=== PATIENT | male | born 1950 | race Caucasian/White ===

== ENCOUNTER 2016-10-11 12:26 | Outpatient (RCR) | payer BC ==
[~2016-10-11] VITALS: Ht 172.7 cm; Wt 77.0 kg
[2016-10-11] VITALS (8 sets, daily range): BP systolic 100–112; BP diastolic 48–56; PULSE 62–70; TEMP 97.5–98.7
[~2016-10-11 12:26] MED LIST: FISH OIL500 MG PO; NORCO 325 MG-51 TAB PO; OCUVITE1 TA1 PO; ZOFRAN ODT4 MG PO
[2016-10-11 13:24] LABS: HEMATOCRIT 19.6 % (42.0-52.0)
[2016-10-11] MEDS ORDERED: ZOVIRAX800 MG PO (16:00)
[2016-10-11] MEDS ORDERED: LEVAQUIN 2250 MG/TAB PO (16:00)
[2016-10-11] MEDS ORDERED: PRINZIDE 25 MG-1 TAB PO (16:00)
[2016-10-11] MEDS ORDERED: BACTRIM DS 8001 TAB PO (16:02)
== END 2016-10-11 18:53 | disposition home or self-care (01) ==
LOC: EUO 12:26
PROVIDERS: Internal Medicine
DX: D64.89 Other specified anemias (principal); Z45.2 Encounter for adjustment and management of vascular access device
CPT/HCPCS: J1200; J1644; J7050; P9040

== ENCOUNTER 2016-10-26 07:34 | Outpatient (RCR) | payer BC ==
[~2016-10-26 07:34] MED LIST changes: +BACTRIM DS 8001 TAB PO; +LEVAQUIN 2250 MG/TAB PO; +PRINZIDE 25 MG-1 TAB PO; +ZOVIRAX800 MG PO
[2016-10-26 14:49] VITALS: BP 113/42; PULSE 76; TEMP 98.9
[2016-10-26 14:54] VITALS: BP 111/42; PULSE 77; TEMP 98.9
[2016-10-26 16:29] VITALS: BP 120/43; PULSE 72; TEMP 97.9
[2016-10-26 16:36] VITALS: BP 119/46; PULSE 69; TEMP 97.7
[2016-10-26 18:04] VITALS: BP 124/47; PULSE 71; TEMP 97.3
== END 2016-10-26 18:00 | disposition home or self-care (01) ==
LOC: EUO 07:34 → MEDICAL 07:34 → EUO 18:00
DX: C83.08 Small cell B-cell lymphoma, lymph nodes of multiple sites (principal)
CPT/HCPCS: OP; P9040

== ENCOUNTER → 2016-11-13 | Outpatient (CLI) | payer BC | LOC: COL.RAD 10:45 | DX: R22.41 Localized swelling, mass and lump, right lower limb (principal) ==

== ENCOUNTER 2022-08-06 13:43 | Day surgery (SDC) | payer MEDICARE ==
[~2022-08-06] VITALS: Ht 172.7 cm; Wt 85.6 kg
[2022-08-06 15:22] VITALS: BP 157/73; PULSE 87; TEMP 97.9
[2022-08-06] MEDS ORDERED: PROSCAR 5MG5 MG PO (15:42)
[2022-08-06] MEDS ORDERED: FLOMAX 0.40.4 MG/CAP PO (15:42)
[2022-08-06] MEDS ORDERED: ZESTRIL30 MG PO (15:43)
[2022-08-06] MEDS ORDERED: LIPITOR 40MG TA40 MG PO (15:43)
[2022-08-06 17:32] VITALS: BP 112/57; PULSE 63; TEMP 97.1
[2022-08-06 17:47] VITALS: BP 115/51; PULSE 60
[2022-08-06 18:02] VITALS: BP 151/59; PULSE 58
[2022-08-06 18:17] VITALS: BP 135/64; PULSE 60
--- NOTE | 2022-08-06 18:30 | NUR ---
1732 RETURNS TO ROOM 6 PER CART. AWAKE, ALERT. RESP CLEAR, UNLABORED. HOB ELEVATED 45 DEGREES. VITAL SIGNS OBTAINED. COBAN WRAPPED DRESSING LEFT INDEX FINGER CLEAN DRY AND INTACT. FINGER SPLINT IN PLACE. DENIES PAIN. 1745 TOLERATES PO JUICE WITHOUT NAUSEA. 1800 AWAKE, ALERT. DENIES PAIN. 1810 DISCHARGE INSTRUCTIONS REVIEWED. PATIENT VERBALIZES UNDERSTANDING. COPY PROVIDED IN DISCHARGE FOLDER. 182 SITS ON EDGE OF BED. DRESSES SELF
== END 2022-08-06 18:30 | disposition home or self-care (01) ==
LOC: SDCO 13:43
DX: M19.042 Primary osteoarthritis, left hand (principal); M19.041 Primary osteoarthritis, right hand; M1A.9XX1 Chronic gout, unspecified, with tophus (tophi); M25.742 Osteophyte, left hand; Z85.72 Personal history of non-Hodgkin lymphomas
CPT/HCPCS: C1713; C1769; J0690; J1100; J2405; J2704; J7120

== ENCOUNTER 2024-05-04 15:47 | Emergency (ER) | payer MEDICARE ==
[~2024-05-04] VITALS: Ht 172.7 cm; Wt 80.9 kg
[~2024-05-04 15:47] MED LIST changes: +FLOMAX 0.40.4 MG/CAP PO; +LIPITOR 40MG TA40 MG PO; +PROSCAR 5MG5 MG PO; +ZESTRIL30 MG PO
[2024-05-04 16:29] LABS: HEMOGLOBIN 10.5 g/dl (13.5-18.0); MEAN CELL VOLUME 96 fl (80.0-100.0); MEAN CORPUSCULAR HEMOGLOBIN 32 pg (27-31); MEAN CORPUSCULAR HGB CONC 33 g/dl (33.0-37.0); MEAN PLATELET VOLUME 10.8 fl (7.4-10.4); PLATELET COUNT 121 K/mm3 (130-400); REDCELL DISTRIBUTION WIDTH-CV 14.2 % (11.5-14.5)
[2024-05-04] MEDS ORDERED: NS 1,000 ML IV ONE ×2 (16:30→21:00)
[2024-05-04 16:32] LABS: HEMATOCRIT 31.6 % (42.0-52.0)
[2024-05-04 16:46] LABS: BILIRUBIN,TOTAL 0.7 mg/dL (0.2-1.2); CREATININE, serum 1.15 mg/dL (0.72-1.25); POTASSIUM 4.9 mEq/L (3.5-4.5)
[2024-05-04] MEDS ORDERED: Iohexol 300 - 100 ML VIAL IV ONE (17:10)
[2024-05-04] MEDS ORDERED: NS 100 ML IV SCH (17:10)
[2024-05-04 17:43] LABS: LYMPHOCYTE 66 % (20.0-51.0); NEUTROPHILS 29 % (42.0-75.2)
[2024-05-04 17:45] LABS: ANISOCYTOSIS 1+; OVALOCYTES 1+; PLATELET ESTIMATE DECREASED (NORMAL); SCHISTOCYTES 1+
[2024-05-04] MEDS ORDERED: Tranexamic Acid 1,000 MG in NS 100 ML IV ONE (18:15)
[2024-05-04] MEDS ORDERED: Tdap Vaccine 0.5 ML SYRINGE IM ONE (18:15)
[2024-05-04] MEDS ORDERED: ceFAZolin 2 G in Water For Injection,Sterile 20 ML IV ONE (18:30)
[2024-05-04 18:55] VITALS: BP 111/59; PULSE 102; TEMP 98.2
[2024-05-04 19:36] LABS: HEMATOCRIT 32.2 % (42.0-52.0)
[2024-05-04 20:55] VITALS: BP 111/59; PULSE 102; TEMP 98.2
[2024-05-04 21:25] VITALS: BP 100/53; PULSE 101; TEMP 97.7
[2024-05-04 21:42] VITALS: BP 105/54; PULSE 99
== END 2024-05-04 21:40 | disposition short-term general hospital (02) ==
LOC: COL.ER 15:47
PROVIDERS: Family Medicine
DX: S36.039A Unspecified laceration of spleen, initial encounter (principal); S36.899A Unspecified injury of other intra-abdominal organs, initial encounter; C91.10 Chronic lymphocytic leukemia of B-cell type not having achieved remission; Z87.891 Personal history of nicotine dependence; V23.49XA Other motorcycle driver injured in collision with car, pick-up truck or van in traffic accident, initial encounter; Y93.55 Activity, bike riding; Y92.410 Unspecified street and highway as the place of occurrence of the external cause
CPT/HCPCS: J0688; J7030; P9016; Q9967

== ENCOUNTER 2024-05-10 19:04 | Emergency (ER) | payer MEDICARE ==
[~2024-05-10] VITALS: Ht 177.8 cm; Wt 104.5 kg
[2024-05-10] MEDS ORDERED: LR 1,000 ML IV ONE (19:30)
[2024-05-10] MEDS ORDERED: Iohexol 300 - 100 ML VIAL IV ONE (19:51)
[2024-05-10 19:52] LABS: MEAN CELL VOLUME 96 fl (80.0-100.0); MEAN CORPUSCULAR HGB CONC 32 g/dl (33.0-37.0); MEAN PLATELET VOLUME 10.9 fl (7.4-10.4); PLATELET COUNT 183 K/mm3 (130-400); RED BLOOD COUNT 2.34 M/mm3 (4.20-5.60); REDCELL DISTRIBUTION WIDTH-CV 15.6 % (11.5-14.5)
[2024-05-10 20:06] LABS: INR 1.3 (0.8-3.0)
[2024-05-10 20:08] LABS: ALBUMIN 2.9 g/dL (3.4-4.8); BILIRUBIN,TOTAL 1.6 mg/dL (0.2-1.2); CALCIUM 7.3 mg/dL (8.4-10.2); CREATININE, serum 1.57 mg/dL (0.72-1.25); POTASSIUM 4.1 mEq/L (3.5-4.5); TOTAL PROTEIN 4.8 g/dl (6.2-8.1)
[2024-05-10 20:10] LABS: HEMATOCRIT 22.5 % (42.0-52.0); HEMOGLOBIN 7.3 g/dl (13.5-18.0); MEAN CORPUSCULAR HEMOGLOBIN 31 pg (27-31)
[2024-05-10] MEDS ORDERED: Tranexamic Acid 1,000 MG in NS 100 ML IV ONE (20:30)
[2024-05-10 20:38] LABS: BAND 1 % (0-10); LYMPHOCYTE 65 % (20.0-51.0); NEUTROPHILS 29 % (42.0-75.2)
[2024-05-10 21:01] VITALS: TEMP 98.1
[2024-05-10 21:30] VITALS: BP 115/60; PULSE 95
== END 2024-05-10 21:57 | disposition short-term general hospital (02) ==
LOC: COL.ER 19:04
PROVIDERS: Emergency Medicine
DX: T79.4XXA Traumatic shock, initial encounter (principal); S36.039A Unspecified laceration of spleen, initial encounter; C95.90 Leukemia, unspecified not having achieved remission; V29.408A Other motorcycle driver injured in collision with unspecified motor vehicles in traffic accident, initial encounter; Y92.410 Unspecified street and highway as the place of occurrence of the external cause
CPT/HCPCS: J7120; P9016; Q9967